=== PATIENT | male | born 1960 | race Caucasian/White ===

== ENCOUNTER 2018-08-31 18:32 | Emergency (ER) | payer OTHER ==
--- NOTE | 2018-08-31 18:56 | EDPHY ---
HPI/HX/ROS/PE/MDM Narrative: CHIEF COMPLAINT: Confusion, amnesia HPI: This patient is a healthy 58 year old male. Woke feeling confused. Returned from [place] last night by plane. Unable to remember things including names. Unable to keep track of the plot of a book his is reading. Endorses difficulty focusing. Looked up symptoms online, concern for CVA. Has never had similar symptoms in the past. Denies any visual changes. No weakness, numbness, or paresthesias in his extremities. Endorses a headache beginning about two hours ago. He feels generally "strange" and tells me several times that he has had a "weird day". Denies any recent alcohol or substance use. No recent trauma or illness. No medication other than multivitamins. No fever, chest pain, shortness of breath, or other associated symptoms. REVIEW OF SYSTEMS: A comprehensive 10 system review of systems is otherwise negative aside from elements mentioned in the history of present illness and medical decision making. PMH: Denies. SOCIAL HISTORY: Employed. . Lives in [place]. PHYSICAL EXAM: General:Patient is alert, in no acute distress. ENT:Eyes are normal to inspection. ENT inspection normal. Neck: Normal inspection. Full range of motion. Respiratory:No respiratory distress. Breath sounds normal bilaterally. Cardiovascular: Regular rate and rhythm. Strong peripheral pulses. Normal cap refill. Abdomen:The abdomen is nontender to palpation. There are no peritoneal signs. There are normal bowel sounds. Back: Normal to inspection. No tenderness to palpation. Skin: Normal color. No rash. Warm and dry. Extremities: Normal appearance. Full range of motion. Neuro: Oriented x3. Normal motor function. Normal sensory function. No pronator drift. No facial droop. ED Course: 58 y/o male presents with confusion and amnesia ongoing since waking this morning around 9am. He is neurologically intact on exam. Plan for EKG, labs including CBC, chemistries, troponin. Plan for CT head to r/o acute processes. EKG was ordered and interpreted by myself. Please see [email or web address] system for official reading. No evidence of ischemia. Laboratory studies are completely unremarkable. POC troponin negative. 19:[address] Villavicencio, radiologist. CT head negative for acute processes. 19:42 Reassessed. Discussede imaging and laboratory results. I discussed options for further workup including MRI brain. He wishes to proceed with MRI at this time. 20:[address] Villavicencio. MRI brain is negative for acute processes. Reassessed patient. Discussed imaging results. Plan to discharge home in good condition. Referral to neurology provided. Follow up and return precautions discussed. The patient is comfortable with this plan. MDM: This is a healthy male who presents with somewhat vague sensation of being 'off ' and of mild memory loss. His detailed neurologic exam in the ED is normal, as are a CTH and MRI brain. I see no signs of brain tumor, seizure, SAH, CVA or demyelinating process. The etiology of his symptoms is unclear - there are no signs of cardiac ischemia or electrolyte abnormality. Ultimately given negative extensive workup, I think the patient is safe for outpatient management and referral to a neurologist. He is comfortable with this plan and we discusses strict return precautions. - Data Points Imaging Results: Imaging Impressions Head CT 08/31/18 19:00 Impression: No acute intracranial process. Findings and recommendations discussed with Shaquille Aguilar MD at 1915 hour, 08/31/2018. Brain MRI 08/31/18 19:42 Impression: 1. No acute intracranial process. 2. Focus of increased T2 FLAIR signal in the left frontal lobe likely represents chronic microvascular ischemic disease or changes related to migraine headaches. Findings and recommendations discussed with Shaquille Aguilar MD at 2037 hour, 08/31/2018. Imaging: Discussed imaging studies w/ call or contact centre manager Radiologist Laboratory Results: Laboratory Results 08/31/18 19:00 08/31/18 19:00 08/31/18 08/31/18 08/31/18 19:07 19:00 19:00 WBC 5.74 10^3/uL 10^3/uL (3.80-9.50) RBC 5.09 10^6/uL 10^6/uL (4.40-6.38) Hgb 15.8 g/dL g/dL (13.7-17.5) Hct 45.4 % % (40.0-51.0) MCV 89.2 fL fL (81.5-99.8) MCH 31.0 pg pg (27.9-34.1) MCHC 34.8 g/dL g/dL (32.4-36.7) RDW 13.0 % % (11.5-15.2) Plt Count 213 10^3/uL 10^3/uL (150-400) MPV 10.2 fL fL (8.7-11.7) Neut % (Auto) 59.7 % % (39.3-74.2) Lymph % (Auto) 30.0 % % (15.0-45.0) Coffee % (Auto) 8.7 % % (4.5-13.0) Eos % (Auto) 0.7 % % (0.6-7.6) Baso % (Auto) 0.7 % % (0.3-1.7) Nucleat RBC Rel Count 0.0 % % (0.0-0.2) Absolute Neuts (auto) 3.43 10^3/uL 10^3/uL (1.70-6.50) Absolute Lymphs (auto) 1.72 10^3/uL 10^3/uL (1.00-3.00) Absolute Monos (auto) 0.50 10^3/uL 10^3/uL (0.30-0.80) Absolute Eos (auto) 0.04 10^3/uL 10^3/uL (0.03-0.40) Absolute Basos (auto) 0.04 10^3/uL 10^3/uL (0.02-0.10) Absolute Nucleated RBC 0.00 10^3/uL 10^3/uL (0-0.01) Immature Gran % 0.2 % % (0.0-1.1) Immature Gran # 0.01 10^3/uL 10^3/uL (0.00-0.10) Sodium 138 mEq/L mEq/L (135-145) Potassium 3.9 mEq/L mEq/L (3.5-5.2) Chloride 103 mEq/L mEq/L (97-110) Carbon Dioxide 25 mEq/l mEq/l (22-31) Anion Gap 10 mEq/L mEq/L (6-14) BUN 16 mg/dL mg/dL (7-23) Creatinine 1.0 mg/dL mg/dL (0.7-1.3) Estimated GFR > 60 Glucose 84 mg/dL mg/dL (70-100) Calcium 9.6 mg/dL mg/dL (8.5-10.4) POC Troponin I 0.01 ng/mL ng/mL (0.00-0.08) Medications Given: Discontinued Medications Sodium Chloride (Ns) 1,000 mls @ 0 mls/hr IV EDNOW ONE; Wide Open PRN Reason: Protocol Stop: 08/31/18 19:00 Last Admin: 08/31/18 19:11 Dose: 1,000 mls Point of Care Test Results: Chemistry 08/31/18 19:07 POC Troponin I 0.01 ng/mL ng/mL (0.00-0.08) General Time Seen by Provider: 08/31/18 18:39 Initial Vital Signs: Initial Vital Signs Temperature (C) 37 C 08/31/18 18:37 Heart Rate 66 08/31/18 18:37 Respiratory Rate 16 08/31/18 18:37 Blood Pressure 124/72 H 08/31/18 18:37 O2 Sat (%) 97 08/31/18 18:37 O2 Delivery Mode Room Air Allergies/Adverse Reactions: Sulfa (Sulfonamide Antibiotics) Allergy (Verified 08/31/18 18:36) Home Medications: Medication Instructions Recorded NO HOME MEDS 10/28/09 Departure - Departure Disposition: Home, Routine, Self-Care Clinical Impression: Confusion, Transient amnesia Condition: Good Instructions: Additional Information, Transient Global Amnesia (ED) Additional Instructions: Follow up with neurology for further evaluation in the next week, as we discussed. Follow up with your primary care provider in 2-3 days. Return to the Emergency Department for recurrence of symptoms or if you develop severe headache, vomiting, vision changes, fever, numbness or weakness in your extremities, or other concerns. Tests performed in the ED (all negative): -EKG -CT -Blood work (no sign of heart attack or electrolyte abnormality) -MRI Referrals: MATEO RIOJAS [Primary Care Provider] - As per Instructions Malcom Talley DO [Medical Doctor] - As per Instructions Report Scribed for: Shaquille Aguilar Report Scribed by: Oanh Aguilar Date of Report: 08/31/18 Time of Report: 18:56 Physician Review and Approval Statement: Portions of this note were transcribed by an ED scribe. I personally performed the history, physical exam, and medical decision making; and confirm the accuracy of the information in the transcribed note.
[2018-08-31] MEDS ORDERED: NS 1,000 ML IV ONE (18:59)
[2018-08-31 19:14] LABS: PLATELET COUNT 213 10^3/uL (150-400)
--- NOTE | 2018-08-31 21:09 | CPEKG ---
Test Reason : OPEN Blood Pressure : / mmHG Vent. Rate : 059 BPM Atrial Rate : 059 BPM P-R Int : 138 ms QRS Dur : 101 ms QT Int : 391 ms P-R-T Axes : 046 048 020 degrees QTc Int : 388 ms Sinus rhythm Confirmed by Shaquille Aguilar ([id number]) on 08/31/2018 9:09:11 PM Referred By: Shaquille Aguilar Confirmed By:Shaquille Aguilar
[2018-08-31 21:12] VITALS: BP 110/63
== END 2018-08-31 21:00 | disposition home or self-care (01) ==
DX: R41.0 Disorientation, unspecified (principal); E86.9 Volume depletion, unspecified
CPT/HCPCS: 70551-PN; 84484-ER